=== PATIENT | female | born 1965 | race Two or more races ===

== ENCOUNTER 2016-07-13 10:06 | Observation (INO) | payer MEDICAID, OTHER ==
[~2016-07-13] VITALS: Ht 152.4 cm; Wt 67.6 kg
[2016-07-13] MEDS ORDERED: SODIUM CHLORIDE 0.9% 1,000 ML IV ONE (11:30)
[2016-07-13] MEDS ORDERED: ONDANSETRON HCL 4 MG/2 ML VIAL IV ONE (11:30)
[2016-07-13] MEDS ORDERED: NALBUPHINE HCL 10 MG/1ml INJECTION IV ONE (11:30)
[2016-07-13 12:13] LABS: Basophils # (auto) 0 uL; Basophils % (auto) 0.5 % (0.0-2.0); Eosinophils # (auto) 0.2 uL; Hematocrit 43.7 % (36.0-46.0); Hemoglobin 14.4 g/dL (12.2-16.2); Lymphocytes # (auto) 2.2 uL; Lymphocytes % (auto) 33.4 % (10.0-50.0); Mean Corpuscular Hemoglobin 30.6 pg (28.0-32.0); Mean Corpuscular Volume 92.9 fL (80.0-100.0); Mean Platelet Volume 8.5 fL (7.4-10.4); Monocytes # (auto) 0.5 uL; Monocytes % (auto) 8.2 % (0.0-12.0); Neutrophils # (auto) 3.6 uL; Neutrophils % (auto) 54.9 % (37.0-80.0); Platelet Count (auto) 319 10^3/uL (140-450); Red Cell Distribution Width 13.9 % (11.6-16.0); White Blood Cell 6.6 10^3/uL (4.4-10.8)
[2016-07-13 12:37] LABS: Albumin 4.1 g/dL (3.4-5.0); Alkaline Phosphatase 92 U/L (45-117); Anion Gap 7 (5-15); Aspartate Aminotransferase 21 U/L (15-37); BUN/Creatinine Ratio 16.2; Bilirubin, Total 1.4 mg/dL (0.2-1.0); Blood Urea Nitrogen 11 mg/dL (7-18); Calcium 9.7 mg/dL (8.5-10.1); Carbon Dioxide 27 mmol/L (21-32); Chloride 108 mmol/L (98-107); GFR African American 118 mL/min; GFR Non-African American 98 mL/min; Glucose 92 mg/dL (74-106); Magnesium 2.7 mg/dL (1.6-2.6); Potassium 3.8 mmol/L (3.5-5.1); Sodium 142 mmol/L (136-145); Total Protein 7.8 g/dL (6.4-8.2)
[2016-07-13 12:39] LABS: Urine Bilirubin Negative (Negative); Urine Blood Negative /uL (Negative); Urine Color Yellow (Yellow); Urine Glucose Normal (Normal); Urine Ketone Negative (Negative); Urine Nitrite Negative (Negative); Urine RBC 1 /hpf (0 - 4); Urine Squamous Epithelial Cell FEW /hpf (<5); Urine Urobilinogen Normal (Negative); Urine pH 5.5 (5.0-8.0)
[2016-07-13 13:06] VITALS: BP 108/83
[2016-07-13] MEDS ORDERED: cefTRIAXone 1GM/50ML D5W 50 ML IV ONE (14:30)
== END 2016-07-13 15:26 | disposition home or self-care (01) | DRG 54 ==
LOC: ER 10:10 → OVERFLOW 11:34 → ER 15:26
PROVIDERS: ADMIT Emergency Medicine; ATTEND Emergency Medicine
DX: G44.229 Chronic tension-type headache, not intractable (principal); M54.2 Cervicalgia
CPT/HCPCS: 36415; 70450; 71020; 80053; 80320; 81001; 83735; 84443; 85025; 93005; 96361; 96365; 96375; 99285; G0378; J0696; J2300; J2405; J7030